=== PATIENT | male | born 1940 | race Caucasian/White ===

== ENCOUNTER 2016-11-05 04:03 | Emergency (ER) | payer MEDICARE, OTHER ==
--- NOTE | 2016-11-05 04:36 | ER Document Report ---
Doctor's Note Notes: 11/05/16 04:35 I performed a quick triage evaluation the patient. Patient is a 76-year-old male who presents with complaint of bleeding from the gums after tooth was pulled. He is on Xarelto due to history of atrial fibrillation. Daughter says that she is unsure if he is even actually supposed. Still taking the Xarelto but he said he started taking again recently because he knows he still had bottles of the medication. They went back to the dentist yesterday. At that time to dentist consider putting a stitch in it but felt it was not necessary and the patient did not want it so was not performed. Patient has had continued bleeding throughout the night and has been spitting up blood.
[2016-11-05] MEDS ORDERED: LIDOCAINE 4%/TETRACAINE 0.5%/EPI 0.18% 5 ML TOPICAL SOLN TOP ONE (05:12)
[2016-11-05] MEDS ORDERED: LIDOCAINE 0.5%/EPINEPHRINE INJ 50 ML VIAL INJ ONE (05:12)
[2016-11-05 05:16] LABS: ABSOLUTE EOSINOPHILS # (AUTO) 0.1 10^3/uL (0.0-0.6); ABSOLUTE LYMPHOCYTES (AUTO) 0.8 10^3/uL (0.5-4.7); ABSOLUTE MONOCYTES (AUTO) 0.6 10^3/uL (0.1-1.4); BASOPHILS % (AUTO) 0.7 % (0-2); HEMATOCRIT 39.2 % (37.9-51.0); HEMOGLOBIN 12.8 g/dL (13.5-17.0); HGB HCT DIFFERENCE -0.8; MEAN CORPUSCULAR HEMOGLOBIN 28.6 pg (27.0-33.4); MEAN CORPUSCULAR HGB CONC 32.7 g/dL (32.0-36.0); MEAN CORPUSCULAR VOLUME 87 fl (80-97); MONOCYTES % (AUTO) 9.5 % (3-13); RED BLOOD COUNT 4.49 10^6/uL (4.35-5.55); RED CELL DISTRIBUTION WIDTH 14.6 % (11.5-14.0); SEGMENTED NEUTROPHILS % (AUTO) 75.8 % (42-78); WHITE BLOOD COUNT 6.6 10^3/uL (4.0-10.5)
[2016-11-05 05:27] LABS: PROTHROMBIN TIME 24.7 SEC (11.4-15.4)
[2016-11-05 05:28] LABS: PARTIAL THROMBOPLASTIN TIME 55.3 SEC (23.5-35.8)
[2016-11-05 05:34] LABS: ANION GAP 11 (5-19); BLOOD UREA NITROGEN 18 mg/dL (7-20); CALCIUM 9.2 mg/dL (8.4-10.2); CARBON DIOXIDE 28 mmol/L (22-30); CHLORIDE 103 mmol/L (98-107); CREATININE RESULT 0.89 mg/dL (0.52-1.25); GLUCOSE 88 mg/dL (75-110); SODIUM 141.7 mmol/L (137-145)
--- NOTE | 2016-11-05 05:43 | ER Document Report ---
ED General - General Chief Complaint: Bleeding Gums Stated Complaint: BLEEDING FROM MOUTH Notes: Patient is a 76-year-old male who presents with complaint of bleeding from the gums after tooth was pulled. He is on Xarelto due to history of atrial fibrillation. Daughter says that she is unsure if he is even actually supposed. Still taking the Xarelto but he said he started taking again recently because he knows he still had bottles of the medication. They went back to the dentist yesterday. At that time to dentist consider putting a stitch in it but felt it was not necessary and the patient did not want it so was not performed. Patient has had continued bleeding throughout the night and has been spitting up blood. TRAVEL OUTSIDE OF THE [place] IN LAST 30 DAYS: No - Related Data Allergies/Adverse Reactions: Sulfa (Sulfonamide Antibiotics) Allergy (Verified 03/29/11 10:02) UNKNOWN Past Medical History - Social History Smoking Status: Unknown if Ever Smoked Frequency of alcohol use: None Drug Abuse: None Family History: Reviewed & Not Pertinent Patient has suicidal ideation: No Patient has homicidal ideation: No - Past Medical History Cardiac Medical History: Reports: Hx Hypertension - medicated Denies: Hx Heart Attack Pulmonary Medical History: Denies: Hx Asthma Neurological Medical History: Denies: Hx Cerebrovascular Accident, Hx Seizures Renal/ Medical History: Denies: Hx Peritoneal Dialysis GI Medical History: Denies: Hx Hepatitis, Hx Hiatal Hernia, Hx Ulcer Infectious Medical History: Denies: Hx Hepatitis Past Surgical History: Reports: Hx Open Heart Surgery - 6 BYPASSES. Denies: Hx Pacemaker Review of Systems - Review of Systems Notes: My Normal Review Basic REVIEW OF SYSTEMS: CONSTITUTIONAL : Denies fever, chills, or sweats. Denies recent illness. EENT: Bleeding from mouth. RESPIRATORY: Denies cough, cold, or chest congestion. Denies shortness of breath, difficulty breathing, or wheezing. GASTROINTESTINAL: Denies abdominal pain. Denies nausea, vomiting, or diarrhea. Denies constipation. Last BM: MUSCULOSKELETAL: Denies neck or back pain or joint pain or swelling. SKIN: Denies rash or skin lesions. NEUROLOGICAL: Denies altered mental status or loss of consciousness. Denies headache. Denies weakness or paralysis or loss of use of either side. Denies problems with gait or speech. Denies sensory or motor loss. ALL OTHER SYSTEMS REVIEWED AND NEGATIVE. Physical Exam - Vital signs Vitals: Pulse Resp BP Pulse Ox 58 L 18 184/87 H 100 11/05/16 04:19 11/05/16 04:19 11/05/16 04:19 11/05/16 04:19 - Notes Notes: General Appearance: Well nourished, alert, cooperative, no acute distress, no obvious discomfort. Well appearing. Vitals: reviewed, See vital signs table. Head: no swelling or tenderness to the head Eyes: PERRL, EOMI, Conjuctiva clear Mouth: Removal of tooth #3. Patient has a large clot in this area with active slow venous oozing around the area where the clot is. Throat: No tonsillar inflammation, No airway obstruction, No lymphadenopathy Lungs: No wheezing, No rales, No rhonci, No accessory muscle use, good air exchange bilaterally. Heart: Normal rate, Regular rythm, No murmur, no rub Extremities: strength 5/5 in all extremities, good pulses in all extremities, no swelling or tenderness in the extremities, no edema. Skin: warm, dry, appropriate color, no rash Neuro: speech clear, oriented x 3, normal affect, responds appropriately to questions. Course - Re-evaluation Re-evalutation: 11/05/16 07:12 Patient continues to have venous oozing from the sites from where his tooth was pulled. I eventually remove the clot. Appears that the bleeding is coming from the lateral aspect of the socket. There is not much tissue there. I did attempt to suture but there is no enough tissue to grab sutured closed. I injected with lidocaine with epi and this did not help. I applied Surgifoam gauze as well as quick clot gauze several times. This slowed down the bleeding but would not stop it. I did call and speak with a local oral surgeon, Dr. grayson , who agrees to see the patient is office 830 this morning. Currently patient' s hemoglobin is stable and he just a slow venous oozing and is protecting his airway without any difficulty. Feel that this is safe. Patient's daughter is with him and she is a surgical clinical reviewer and agrees to watch him closely until they get him to the oral surgeon in 1 hour. Dictation of this chart was performed using voice recognition software; therefore, there may be some unintended grammatical errors. - Vital Signs Vital signs: Temp Pulse Resp BP Pulse Ox 58 L 18 184/87 H 100 11/05/16 04:19 11/05/16 04:19 11/05/16 04:19 11/05/16 04:19 - Laboratory Result Diagrams: 11/05/16 04:45 11/05/16 04:45 Laboratory results interpreted by me: 11/05/16 11/05/16 04:45 04:45 Hgb 12.8 L RDW 14.6 H Lymphocytes % 12.0 L PT 24.7 H APTT 55.3 H Discharge - Discharge Clinical Impression: Bleeding gums Additional Instructions: Please follow up at Dr. Grayson's office at 8:30am. His address is: [address] [place] [address] [place] [address] [phone] Do not take your xarelto for at least 48 hours. return to the ER if you have worsening bleeding or feel unwell.
[2016-11-05] MEDS ORDERED: LIDOCAINE 1%/EPINEPHRINE INJ 20 ML VIAL INJ ONE (06:10)
[2016-11-05 07:43] VITALS: BP 149/61
== END 2016-11-05 07:44 | disposition home or self-care (01) ==
LOC: ER 04:03
DX: K06.8 Other specified disorders of gingiva and edentulous alveolar ridge (principal); Z98.818 Other dental procedure status; I48.91 Unspecified atrial fibrillation; I10 Essential (primary) hypertension; Z79.02 Long term (current) use of antithrombotics/antiplatelets; Z88.2 Allergy status to sulfonamides; Z95.1 Presence of aortocoronary bypass graft
CPT/HCPCS: 99283; 86900; 86901; 36415; 86850; 85025; 85610; 85730; 80048; J3490